=== PATIENT | female | born 1965 | race Two or more races ===

== ENCOUNTER 2024-10-13 05:45 | Day surgery (SDC) | payer MEDICAID, SELFPAY ==
--- NOTE | 2024-10-12 11:42 | EKG_ITS ---
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
[2024-10-12 11:50] VITALS: BMI 41.3
[2024-10-12 12:41] LABS: Basophils # (Auto) 0.1 Thou/mm3 (0.0-0.2); Basophils % (Auto) 1 % (0-2.5); Eosinophils # (Auto) 0.2 Thou/mm3 (0.0-0.5); Eosinophils % (Auto) 3 % (0-10); Hematocrit 40.7 % (36.0-46.0); Hemoglobin 13.4 g/dL (12.0-16.0); Immature Granulocytes Auto 0.02 Thou/mm3 (0.00-0.00); Lymphocytes # (Auto) 2.1 Thou/mm3 (1.0-4.8); Lymphocytes % (Auto) 27 % (10-50); Mean Corpuscular HGB Conc 32.9 g/dl (31.0-37.0); Mean Corpuscular Hemoglobin 28.8 pg (25.0-35.0); Mean Corpuscular Volume 88 fL (80-100); Monocytes # (Auto) 0.5 Thou/mm3 (0.0-0.8); Monocytes % (Auto) 7 % (0-12); Neutrophils # (Auto) 5.0 Thou/mm3 (1.8-7.7); Neutrophils % (Auto) 63 % (37-80); Nucleated Red Blood Cell # 0.00 Thou/mm3 (0.00-0.00); Nucleated Red Blood Cell % 0 /100 WBC (0); Platelet Count 248 Thou/mm3 (140-440); RDW Standard Deviation 42.9 fL (36.4-46.3); Red Blood Count 4.65 Miln/mm3 (4.00-5.20); White Blood Count 8.0 Thou/mm3 (3.6-11.0)
[2024-10-12 12:45] LABS: Anion Gap 12 (7-16); BUN/Creatinine Ratio 15 Ratio (12-20); Blood Urea Nitrogen 12 mg/dL (9-23); Calcium 9.4 mg/dL (8.3-10.6); Carbon Dioxide 23.1 mMol/L (20.0-31.0); Chloride 110 mMol/L (98-107); Creatinine (Component) 0.8 mg/dL (0.6-1.3); Estimated Creatinine Clearance 80.5 mL/min (>60); Glucose 100 mg/dL (74-106); Osmolality,Calculated 288 (275-295); Potassium 3.8 mMol/L (3.4-5.1); Sodium 145 mMol/L (136-145); eGFR > 60 See Note
[2024-10-12 12:51] LABS: INR 1.0 (0.9-1.3); Partial Thromboplastin Time 24.8 Seconds (22.0-36.0); Prothrombin Time 10.7 Seconds (9.0-12.2)
--- NOTE | 2024-10-12 13:41 | SUR.PREOP ---
Pt notified to come in at 0545 tomorrow for surgery.
[2024-10-13] VITALS (7 sets, daily range): BP systolic 90–140; BP diastolic 50–72; PULSE 50–65; RESP 16–20; TEMP 36.4–36.6; O2SAT 95–98; BMI 41.7
--- NOTE | 2024-10-13 08:32 | SUR.PHASEI ---
pt received from OR in recovery bay 1. pt obtunded, breathing unlabored on oxymask 8l, oral airway in place. v/s stable. pt dressing to left hand cdi. report received from Dr. Nathan and Chuck ALAS.
--- NOTE | 2024-10-13 08:34 | PD.SUROPNT ---
Date of Procedure 10/13/24 Pre Op Diagnosis Ganglion cyst flexor aspect DIP joint left index finger Post Op Diagnosis Same Procedure Excision cyst left index finger Findings There is a mass off about 1 mm in diameter at the DIP joint on the flexor aspect of the left index finger. Soft cystic mobile. Procedure Description Patient was given general anesthesia. Was satisfactory anesthesia achieved a tourniquet was placed on left upper arm. Following that the part was thoroughly prepped and draped. After Esmarch the tourniquet pressure was raised to 250 mmHg. A skin incision was made from the lateral aspect of the DIP crease extending distally [place] to the distal phalanx. It was also extended proximally obliquely towards the middle phalanx. The skin was raised as a flap. The cyst was located over the lateral aspect of the flexor sheath just distal to the DIP joint Therefore blunt and sharp dissection the mass was excised and it was consistent with ganglion cyst. It was sent for histopathological examination Wound was irrigated with antibiotic solution every 2 to 3 minutes Closure of the skin was done with help of 3-0 Prolene in an interrupted fashion. About 8 to 9 mL of quarter percent Marcaine was injected at the skin incision site and also at the base of the finger Cleaning the wound with hydrogen peroxide solution sterile dressing was applied and tourniquet pressure was released Patient tolerated procedure well. Estimated blood loss 1 mL Anesthesia GETA Pathology / specimen None Estimated Blood Loss 1 Surgeon Kavon Potter MD Surgical Staff Operation Date: 10/13/24 07:45 <No data on this case meets the specified criteria>
--- NOTE | 2024-10-13 08:58 | SUR.PHASEI ---
pt able to tolerate oral fluids without difficulty swallowing or nausea/vomiting.
--- NOTE | 2024-10-13 09:24 | SUR.PHASEII ---
pt awake and alert, breathing unlabored on room air. v/s stable. pt dressing to left wrist cdi. pt able to ambulate to wheelchair with steady gait. d/c instructions given with daughter in law Kristi in room using inventory control assistant Esteban [email or web address], all questions answered. pt d/c via wheelchair with all belongings.
--- NOTE | 2024-10-13 12:14 | ESHP_ITS ---
RE: TOÑO MAY : 1965 DATE OF ADMISSION: 10/13/2024 The patient came to my office on 10/12/2024 for detailed preop history and physical examination. HISTORY OF PRESENT COMPLAINT: The patient presented to me with a mass over the flexor aspect at the DIP joint of the left index finger. It is quite painful. The patient has stated that it is interfering with routine and daily activities and activities of daily living. She is unable to do household work. PAST MEDICAL HISTORY: The patient denies history of diabetes mellitus, high blood pressure, asthma, seizure, chest pain, myocardial infarction, bleeding disorder. DRUG HISTORY: The patient is on, 1. Acetaminophen. 2. Citalopram or Celexa ALLERGIES: NIL KNOWN FAMILY HISTORY AND SOCIAL HISTORY: Noncontributory. PAST SURGICAL HISTORY: Cholecystectomy in 2019. PHYSICAL EXAMINATION: GENERAL: Normal built lady. VITAL SIGNS: Pulse 88 per minute. Blood pressure is 126/76. NECK: Soft, supple. No masses felt. Trachea is centrally placed. CARDIOVASCULAR SYSTEM: First and second heart sounds normal. No murmur heard. RESPIRATORY SYSTEM: Bilateral vesicular breath sounds. CHEST: Clear. ABDOMEN: Soft, no masses felt. Bowel sounds present. EXTREMITIES: Left index examination revealed a small mass of about 1-2 mm diameter at the DIP joint over the medial aspect. It is soft, cystic, mobile, but quite tender. Clinically, it is ganglion cyst. Since the patient has symptoms consistent with ganglion cyst, therefore, excision was advised. Risks with anesthesia was explained and that includes, but not limited to reaction to anesthetic agents, cardiac arrest and rarely it might be fatal. Risk with operation includes infection and if that happens, the patient may need further surgical procedure. Other risks include delayed healing, wound dehiscence, etc. No guarantee is given regarding outcome of the procedure and/or relief of symptoms. Detailed discussion took place. The surgery is booked for 10/13/2024. DT: 08:41:48 TT: 09:11:00 Ref: [id number] - TID: [id number]
== END 2024-10-13 09:24 | disposition home or self-care (01) ==
PROVIDERS: PCP Internal Medicine; Referring Provider Orthopaedic Surgery; Visit Provider Orthopaedic Surgery
PROC: (CPT 26160; principal; 2024-10-13 07:30)
DX: M67.442 Ganglion, left hand (principal); Z01.810 Encounter for preprocedural cardiovascular examination; Z90.49 Acquired absence of other specified parts of digestive tract
CPT/HCPCS: 26160; 36415; 80048; 85025; 85610; 85730; 93005; A4217; A4649; J0131; J1100; J1580; J1885; J2250; J2405; J2704; J3010; J3490; J0665